=== PATIENT | female | born 1935 | race Caucasian/White ===

== ENCOUNTER 2022-11-10 10:06 | Observation (INO) | payer MEDICARE ==
[~2022-11-10] VITALS: Ht 167.6 cm; Wt 73.5 kg
[2022-11-10] VITALS (8 sets, daily range): BP systolic 129–146; BP diastolic 87–111
[2022-11-10 11:13] LABS: BASOPHILS ABSOLUTE AUTO 0.06 K/mm3 (0.00-0.23); BASOPHILS PERCENT AUTO 1 % (0-2); EOSINOPHILS ABSOLUTE AUTO 0.22 K/mm3 (0.00-0.68); EOSINOPHILS PERCENT AUTO 2 % (0-6); Hematocrit 44.3 % (33.0-51.0); IMMATURE GRAN ABSOLUTE AUTO 0.02 K/mm3 (0.00-0.10); IMMATURE GRAN PERCENT AUTO 0 % (0-1); LYMPHOCYTES ABSOLUTE AUTO 2.79 K/mm3 (0.84-5.20); LYMPHOCYTES PERCENT AUTO 25 % (21-46); MONOCYTES ABSOLUTE AUTO 0.89 K/mm3 (0.16-1.47); MONOCYTES PERCENT AUTO 8 % (4-13); Mean Corpuscular HGB 30.9 pg (26.0-34.0); Mean Corpuscular HGB Conc 33.9 g/dL (31.5-36.5); Mean Corpuscular Volume 91 fL (80-100); Mean Platelet Volume 11.9 fL (9.1-12.4); NEUTROPHILS PERCENT AUTO 64 % (41-73); Platelet Count 233 K/mm3 (150-400); RDW Coefficient Variation 14.3 % (11.7-14.2); RDW Standard Deviation 48.2 fL (35.1-46.3); Red Blood Cell Count 4.86 M/mm3 (3.80-5.20); White Blood Cell Count 10.98 K/mm3 (4.00-11.30)
[2022-11-10 11:30] LABS: Albumin, Blood 3.4 g/dL (3.4-5.0); Albumin/Globulin Ratio 1.1 (0.8-1.8); Bilirubin, Total 1.2 mg/dL (0.1-1.0); Calcium, Blood 9.2 mg/dL (8.5-10.1); Creatinine, Blood 0.77 mg/dL (0.40-1.00); Globulin, Blood 3.2 g/dL (2.2-4.0); Total Protein, Blood 6.6 g/dL (6.4-8.2)
[2022-11-10] MEDS ORDERED: METO25ER PO (13:36)
[2022-11-10] MEDS ORDERED: DIGOX125 MC1 PO (13:36)
[2022-11-10] MEDS ORDERED: LOSA50 PO (13:36)
[2022-11-10] MEDS ORDERED: ALEN70 PO (13:36)
[2022-11-10] MEDS ORDERED: PRAV20 PO (13:37)
[2022-11-10] MEDS ORDERED: WARF5 PO (13:38)
[2022-11-10 14:19] LABS: Digoxin (Lanoxin) 1.09 ug/mL (0.80-2.00)
[2022-11-10 14:28] LABS: International Normalized Ratio 2.57; Prothrombin Time Results 25.6 Sec (9.7-11.5)
--- NOTE | 2022-11-10 18:34 | NUR ---
SHIFT SUMMARY: PT IS NEW ADMISSION FROM ED FOR AFIB WITH RVR. CURRENT RHYTHM IS AFIB IN 80S ON TELE. CHRONIC FACIAL DROOP ON RIGHT SIDE. NO OTHER DEFICITS. ATTEMPTED TO GET RECORDS FROM [facility] BUT OFFICE IS CLOSED. PT'S AT BEDSIDE, DENIES FURTHER NEEDS.
--- NOTE | 2022-11-10 18:43 | NUR ---
IGNITION RISK: PT DENIES POSSESSION OF MATCHES, LIGHTERS, CIGARRETTES
[2022-11-11 00:12] VITALS: BP 110/85
[2022-11-11 03:10] VITALS: BP 127/100
--- NOTE | 2022-11-11 05:08 | NUR ---
SHIFT SUMMARY PT SITTING UP IN BED DURING BEDSIDE ROUNDING, AT BEDSIDE, ASSESSED PT FOR RISK OF IGNITION SOURCE, PT DENIED HAVING ITEMS OF IGNITION SOURCE, 2119 CALL TO ASHISH MIRZA RE: PT HR INCREASED AND REPORT OF AFIB WITH RVR FROM [facility]- NEW ORDER FOR LOPRESSOR 5MG PUSH X 1- PT HR CONTINUED TO BE INCREASED, REPEAT CALL TO ASHISH MIRZA- NEW ORDER FOR LOPRESSOR 5MG X 2- PT HR CONTINUED TO BE HIGH 120-150- CALL TO DR. BENITEZ - GAVE PT TYLENOL FOR HEADACHE AND NEW ORDER OF CARDIZEM 30MG PO- PT HR DECREASED AND SUSTAINED IN LOW 100S- PT DENIED CP OR SOB- BED LOW POSITION, CALL LIGHT WITHIN REACH
[2022-11-11 05:11] LABS: BASOPHILS ABSOLUTE AUTO 0.05 K/mm3 (0.00-0.23); BASOPHILS PERCENT AUTO 1 % (0-2); EOSINOPHILS PERCENT AUTO 3 % (0-6); Hematocrit 42.4 % (33.0-51.0); Hemoglobin 14.3 g/dL (11.5-16.0); IMMATURE GRAN ABSOLUTE AUTO 0.03 K/mm3 (0.00-0.10); IMMATURE GRAN PERCENT AUTO 0 % (0-1); LYMPHOCYTES ABSOLUTE AUTO 3.16 K/mm3 (0.84-5.20); LYMPHOCYTES PERCENT AUTO 33 % (21-46); MONOCYTES PERCENT AUTO 8 % (4-13); Mean Corpuscular HGB 31.1 pg (26.0-34.0); Mean Corpuscular HGB Conc 33.7 g/dL (31.5-36.5); Mean Corpuscular Volume 92 fL (80-100); NEUTROPHILS ABSOLUTE AUTO 5.27 K/mm3 (1.96-9.15); NEUTROPHILS PERCENT AUTO 55 % (41-73); Platelet Count 197 K/mm3 (150-400); RDW Coefficient Variation 14.5 % (11.7-14.2); RDW Standard Deviation 49.1 fL (35.1-46.3); White Blood Cell Count 9.61 K/mm3 (4.00-11.30)
[2022-11-11 05:29] LABS: International Normalized Ratio 3.72; Prothrombin Time Results 36.3 Sec (9.7-11.5)
[2022-11-11 06:05] LABS: Bun/Creatinine Ratio 23.6 (12.0-20.0); Calcium, Blood 8.8 mg/dL (8.5-10.1); Creatinine, Blood 0.93 mg/dL (0.40-1.00); Magnesium, Blood 1.9 mg/dL (1.6-2.4); Potassium, Blood 3.5 mmol/L (3.5-5.5)
--- NOTE | 2022-11-11 07:30 | NUR ---
ASSUMED CARE: PT RESTING IN BED, INTERACTING WITH STAFF DURING BEDSIDE REPORT. ON TELE, AFIB IN 1TEENS TO 120S AT THIS TIME. DENIES NEEDS OR CONCERNS AT THIS TIME.
[2022-11-11 07:43] VITALS: BP 143/70
[2022-11-11 12:01] VITALS: BP 127/87
[2022-11-11 13:31] VITALS: BP 121/85
[2022-11-11] MEDS ORDERED: DILT60ER PO (13:46)
--- NOTE | 2022-11-11 14:26 | NUR ---
DISCHARGE: PT GIVEN DISCHARGE INSTRUCTIONS REGARDING FOLLOW UP APPOINTMENTS WITH CARDIOLOGY, PCP AND ENDOCRINOLOGY. PT GIVEN LONG ACTING DOSE OF CARDIZEM AND INSTRUCTED TO GIVE NEXT DOSE THIS EVENING. IV DC'D WNL. ESCORTED OUT VIA WHEEL CHAIR BY HOSPITAL STAFF. NO FURTHER NEEDS OR CONCERNS AT THIS TIME.
[2022-11-15 17:19] LABS: THYROGLOBULIN ANTIBODY <1.0 IU/mL (0.0-0.9); THYROID PEROXIDASE (TPO) AB 12 IU/mL (0-34)
== END 2022-11-11 14:19 | disposition home or self-care (01) ==
LOC: ER 10:06 → MEDS 10:07 → ENPENDDIS 11-11 12:28 → MEDS 11-11 14:19
PROVIDERS: Physician Assistant; Student in an Organized Health Care Education/Training Program; ADMIT Internal Medicine
DX: G45.9 Transient cerebral ischemic attack, unspecified (principal); I48.92 Unspecified atrial flutter; I48.91 Unspecified atrial fibrillation; E03.9 Hypothyroidism, unspecified; I10 Essential (primary) hypertension; E78.5 Hyperlipidemia, unspecified; Z79.01 Long term (current) use of anticoagulants
CPT/HCPCS: 36415; 70450; 80048; 80053; 80162; 83735; 84439; 84443; 84480; 85025; 85610; 86376; 86800; 93005; 93010; 96365; 96366; 96375; 96376; 99285-25; A9270; G0378